=== PATIENT | female | born 1940 | race Caucasian/White ===

== ENCOUNTER 2023-11-06 20:30 | Emergency (ER) | payer OTHER ==
[2023-11-06 20:36] VITALS: BMI 26.5
[2023-11-06] MEDS ORDERED: ACETAMINOPHEN 500 MG TABLET (FP) PO ONE (21:10)
[2023-11-06] MEDS: LACTATED RINGERS SOLUTION 1000 ML INFUS.BAG IV ONE (21:48)
[2023-11-06] MEDS ORDERED: ACETAMINOPHEN INJECTION 100 ML IVPB ONE (21:49)
[2023-11-06] MEDS ORDERED: ONDANSETRON 4 MG/2 ML VIAL ONE (21:49)
[2023-11-06 21:53] LABS: BASO % 0.3 % (0-2.0); EOS % 0.8 % (0-4.5); HEMATOCRIT 36.2 % (32.4-45.2); HEMOGLOBIN 12.2 GM/dL (10.7-15.3); LYMPH % 16.2 % (8-40); MCH 27.4 pg (25.7-33.7); MCHC 33.7 g/dl (32.0-36.0); MEAN CELL VOLUME 81.1 fl (80-96); MEAN PLT VOLUME 5.9 fl (7.5-11.1); MONO % 6.7 % (3.8-10.2); PLATELET COUNT 367 10^3/uL (134-434); RBC 4.46 M/mm3 (3.60-5.2); RDW 14.1 % (11.6-15.6); WHITE BLOOD COUNT 10.1 K/mm3 (4.0-10.0)
[2023-11-06] MEDS: ACETAMINOPHEN 1000 MG/100 ML BAG IVPB ONE (21:55)
[2023-11-06] MEDS: ONDANSETRON 4 MG/2 ML VIAL IVPUSH ONE (21:55)
[2023-11-06 22:01] LABS: INR 0.85 (0.83-1.09); PROTHROMBIN TIME (PATIENT) 9.6 SEC (9.7-13.0)
[2023-11-06 22:03] LABS: ACTIVATED PTT 30.2 SECONDS (25.2-36.5)
[2023-11-06 22:09] LABS: POTASSIUM 4.8 mmol/L (3.5-5.1)
[2023-11-06 22:11] LABS: ALBUMIN 3.8 g/dl (3.4-5.0); BLOOD UREA NITROGEN 13.6 mg/dL (7-18)
[2023-11-06 22:14] LABS: CREATININE 1.2 mg/dL (0.55-1.3)
[2023-11-06 22:16] LABS: TOT PROT 7.3 g/dl (6.4-8.2)
[2023-11-06 22:19] LABS: BILIRUBIN,TOTAL 0.4 mg/dL (0.2-1)
[2023-11-06] MEDS ORDERED: ASPIRIN 81 MG CHEWABLE TABLETS ONE (22:33)
[2023-11-06] MEDS: ASPIRIN 81 MG CHEWABLE TABLETS PO ONE (22:37)
[2023-11-06] MEDS ORDERED: CLOPIDOGREL BISULFATE 300 MG TABLET ONE (22:49)
[2023-11-06] MEDS ORDERED: HEPARIN NA (PORCINE) 5,000 UNITS/ML 1ML VIAL ONE (22:49)
[2023-11-06] MEDS: CLOPIDOGREL BISULFATE 300 MG TABLET PO ONE (22:53)
[2023-11-06] MEDS: HEPARIN NA (PORCINE) 5,000 UNITS/ML 1ML VIAL IVPUSH ONE (22:53)
[2023-11-06 23:16] VITALS: BP 140/86; PULSE 90; RESP 20; TEMP 98.6
== END 2023-11-06 23:36 | disposition short-term general hospital (02) ==
LOC: JER 20:30
PROC: 3E033GC Introduction of Other Therapeutic Substance into Peripheral Vein, Percutaneous Approach (ICD-10-PCS; principal; 2023-11-06)
PROC: 3E033GC Introduction of Other Therapeutic Substance into Peripheral Vein, Percutaneous Approach (ICD-10-PCS; 2023-11-06)
PROC: 3E033NZ Introduction of Analgesics, Hypnotics, Sedatives into Peripheral Vein, Percutaneous Approach (ICD-10-PCS; 2023-11-06)
DX: R07.81 Pleurodynia (principal); I21.3 ST elevation (STEMI) myocardial infarction of unspecified site; R06.02 Shortness of breath; R42 Dizziness and giddiness
CPT/HCPCS: 36415; 71045-TC-FY; 80053; 84484; 85025; 85610; 85730; 93005; 93010; 99285-25; J0131; J1644